=== PATIENT | male | born 1955 | race Caucasian/White ===

== ENCOUNTER 2018-11-13 10:43 | Emergency (ER) | payer MEDICARE, OTHER ==
[~2018-11-13] VITALS: Ht 181.6 cm; Wt 116.2 kg
[~2018-11-13 10:43] MED LIST: AZIT250T PO; HYDR-4011 PO; IBUP-1561 PO
[2018-11-13 10:49] VITALS: Ht 181.6 cm; Wt 116.2 kg
[2018-11-13] MEDS ORDERED: KETOROLAC 30 MG INJ IM STA (11:19)
[2018-11-13] MEDS ORDERED: HYDROCODONE/APAP (10/325) TAB PO ONE (11:30)
--- NOTE | 2018-11-13 11:30 | ERD ---
ER Documentation Chief Complaint Chief Complaint left shoulder pain/injury HPI 63-year-old male presents complaint of right shoulder pain, right hand pain, right rib pain, and lumbar pain after falling off a 12 foot ladder 1/2 hours ago. Patient also states that he hit his head but denies any current headaches, vision problems, vomiting, amnesia, numbness, weakness. States that he is unable to move his right arm. Denies any numbness upper extremity. Denies any neck pain.. Denies any dyspnea, hemoptysis, wheezing, shortness of breath, cough, saddle numbness, incontinence. States the pain is currently 7 out of 10. Denies any treatments. ROS All systems reviewed and are negative except as per history of present illness. Medications Home Meds Active Scripts Hydrocodone/Acetaminophen ([place] 5-325 Tablet) 1 Each Tablet, 1 TAB PO Q6H PRN for PAIN, #10 TAB Prov:MIRI FAGAN 11/13/18 Ibuprofen* (Motrin*) 400 Mg Tab, 400 MG PO Q6, #30 TAB Prov:MIRI FAGAN 11/13/18 Azithromycin* (Zithromax*) 250 Mg Tablet, 250 MG PO .ZPACK DIRECTED, #6 TAB TAKE 500 MG (2 TABS) THE FIRST DAY THEN 250 MG (1 TAB) DAYS 2-5 Prov:POOJA WRIGHT DO 06/04/17 Allergies Allergies: Coded Allergies: amitriptyline (Unverified Allergy, Unknown, 06/04/17) lamotrigine (Unverified Allergy, Unknown, 06/04/17) PMhx/Soc Hx Alcohol Use: Yes (SOCIAL) Hx Substance Use: No Hx Tobacco Use: No Smoking Status: Never smoker FmHx Family History: No diabetes, No coronary disease, No other Physical Exam Vitals Vital Signs Date Temp Pulse Resp B/P (MAP) Pulse Ox O2 O2 Flow FiO2 Time Delivery Rate 11/13/18 97.9 63 16 127/77 99 Room Air 15:07 (94) 11/13/18 98.3 75 22 141/70 100 10:49 (93) Physical Exam Const: No acute distress Head: Atraumatic Eyes: Normal Conjunctiva ENT: Normal External Ears, Nose and Mouth. Neck: Full range of motion. No meningismus. Resp: Clear to auscultation bilaterally tenderness palpation over left chest wall with no edema, erythema, bony deformity noted. No JVD. Cardio: Regular rate and rhythm, no murmurs Abd: Soft, non tender, non distended. Normal bowel sounds Skin: No petechiae or rashes Back: Tenderness to palpation in lumbar area with no bony step-offs or obvious deformities. Ext: No cyanosis, or edema Neur: Awake and alert Psych: Normal Mood and Affect Upper Extremity - bilateral: Skin: No laceration, or evidence of external trauma Compartments: Soft Motor: Patient unwilling to move right shoulder due to pain. Sensation: Intact shoulder/pinky/middle finger/thumb web space Bones: Tender right humerus/elbow/forearm/wrist/hand Snuffbox: Nontender Joints: No effusion Pulses/Perfusion: 2+ radial, Capillary refill < 2 seconds Neuro: M/S: Alert and oriented Face: EOMI, face and pharynx with normal sensation and function Motor: Normal strength throughout Sensation: Normal sensation throughout Speech: Normal Cerebel: Normal coordination Normal finger to nose DTR: 2+ and symmetric upper/lower extremities Results 24 hrs Laboratory Tests Test 11/13/18 14:00 Urine Color JORDEN Urine Clarity CLOUDY Urine pH 5.0 Urine Specific [place] 1.027 Urine Ketones 1+ mg/dL Urine Nitrite NEGATIVE mg/dL Urine Bilirubin 1+ mg/dL Urine Urobilinogen 1+ mg/dL Urine Leukocyte Esterase NEGATIVE Guy/ul Urine Microscopic RBC 1 /HPF Urine Microscopic WBC 12 /HPF Urine Bacteria FEW /HPF Urine Hyaline Casts FEW /HPF Urine Mucus MANY /HPF Urine Hemoglobin NEGATIVE mg/dL Urine Glucose NEGATIVE mg/dL Urine Total Protein 2+ mg/dl Current Medications Medications Dose Sig/Luh Start Time Status Last (Trade) Ordered Route PRN Stop Time Admin Dose Reason Admin 1 tab ONCE ONCE 11/13/18 DC 11/13/18 Acetaminophen PO 11:30 11:37 / 11/13/18 11:31 Hydrocodone Bitart ([place] (10/325)) Ketorolac 30 mg ONCE STAT 11/13/18 DC 11/13/18 Tromethamine IM 11:19 11:36 (Toradol) 11/13/18 11:27 Procedures/MDM MDM: Head CT, neck CT, and extensive x-rays were taken. There were numerous please refer to imaging for details. All results within normal limits. I have low suspicion for cranial fracture, CVA, intracranial bleed, neurovascular compromise, compartment syndrome, fracture, osteomyelitis, septic joint, DVT, or other emergent condition. Patient was given arm splint and advised to follow-up with [facility] within 24 hours as he is already patient there and he is still having some difficulty with range of motion in shoulder. Patient was also given instructions for head injury. Patient advised if experiences any vomiting, numbness, weakness, severe headache, difficulty ambulating, incontinence, he should return to ER immediately. Patient understood and agreed. At this time, patient is stable for discharge and outpatient management. I have instructed the patient to follow-up with his/her primary care physician in 1-2 days. I have discussed with the patient the possibility of needing to see a specialist for further workup and imaging studies if symptoms persist. I have instructed the patient to promptly return to the ER for any new or worsening symptoms including but not limited to increased pain, fever, nausea, vomiting, weakness or LOC. The patient and/or family expressed understanding of and agreement with this plan. All questions were answered. Home care instructions were provided. DISCLAIMER: Inadvertent spelling and grammatical errors are likely due to EHR/dictation software use and do not reflect on the overall quality of patient care. Also, please note that the electronic time recorded on this note does not necessarily reflect the actual time of the patient encounter. Departure Diagnosis: Primary Impression: Shoulder injury Additional Impressions: Shoulder pain Fall Back pain Condition: Stable MIRI FAGAN Nov 13, 2018 11:29
[2018-11-13 15:07] VITALS: BP 127/77; PULSE 63; RESP 16
== END 2018-11-13 15:10 | disposition home or self-care (01) ==
LOC: FTE 10:43
DX: S49.91XA Unspecified injury of right shoulder and upper arm, initial encounter (principal); S39.92XA Unspecified injury of lower back, initial encounter; Y92.9 Unspecified place or not applicable; S09.90XA Unspecified injury of head, initial encounter; R07.81 Pleurodynia; W11.XXXA Fall on and from ladder, initial encounter
CPT/HCPCS: 70450; 71045; 71110; 72125; 72131; 72170; 73030; 73060; 73110; 73130; 81001; 96372; 99285; J1885